=== PATIENT | female | born 1980 | race African-American/Black ===

== ENCOUNTER 2016-07-29 13:38 | Emergency (ER) | payer OTHER ==
[2016-07-29 13:44] VITALS: BP 120/68; PULSE 85; TEMP 98.1; BMI 32.4
--- NOTE | 2016-07-29 15:07 | PDOC ---
History of Present Illness - General Chief Complaint: Back Pain Stated Complaint: LOWER BACK PAIN Time Seen by Provider: 07/29/16 14:36 History Source: Patient Exam Limitations: No Limitations - History of Present Illness Initial Comments: 07/29/16 16:44 MY CHIEF COMPLAINT: LOWER BACK SINCE YESTERDAY GETTING WORSE HISTORY OF PRESENT ILLNESS: PT. IS A 36 Y/O FEMALE WITH H/O ANEMIA HERE TODAY C/ O LOWER BACK PAIN WITHOUT RADIATION DOWN LEGS SINCE YESTERDAY. PT. DENIES ANY HEAVY LIFTING OR INJURY. PT. DENIES ANY SADDLE ANESTHESIA OR INCONTINENCY. PT. HAS DIFFICULTY STANDING UP STRAIGHT DUE MUSCLE SPASM IN LOWER BACK. PT. REPORTS PAIN WORSENS THROUGHOUT THE DAY AND IS WORSE WITH MOVEMENT. PT. REPORTS PAIN CURRENTLY IS A 8 OUT OF 10. Reports having back pain intermittently for the last 2 years probable a 4-5 times her year however this episode is worse than the past episodes. Occurred: reports: yesterday Severity: reports: moderate Pain Location: reports: back (lower mid to left back pain ) Method of Injury: Yes: unknown Modifying Factors: improves with: None Loss of Consciousness: no loss of consciousness Associated Symptoms (Fall): muscle spasms (lower back when getting up from seated position ) Past History - Past Medical History Allergies/Adverse Reactions: Allergies Allergy/AdvReac Type Severity Reaction Status Date / Time No Known Allergies Allergy Verified 07/29/16 13:44 Home Medications: Ambulatory Orders Cyclobenzaprine HCl [Flexeril 10 mg] 10 mg PO Q8H PRN #21 tablet MDD 3 07/29/16 Naproxen [Naprosyn -] 500 mg PO BID PRN #14 tablet 07/29/16 Anemia: Yes Psychiatric Problems: Yes (anxiety) - Surgical History Cholecystectomy: Yes - Immunization History Immunization Up to Date: Yes - Psycho/Social/Smoking Cessation Hx Anxiety: Yes Suicidal Ideation: No Smoking Status: No Smoking History: Never smoked Number of Cigarettes Smoked Daily: 0 Information on smoking cessation initiated: No Hx Alcohol Use: No Drug/Substance Use Hx: No Substance Use Type: None Review of Systems - Review of Systems Able to Perform ROS?: Yes Constitutional: No: Symptoms Reported HEENTM: No: Symptoms Reported Respiratory: No: Symptoms reported Cardiac (ROS): No: Symptoms Reported ABD/GI: No: Symptoms Reported : No: Symptoms Reported Musculoskeletal: Yes: Back Pain (mid to left lower back pain with muscle spasm ) Integumentary: No: Symptoms Reported Neurological: No: Symptoms reported *Physical Exam - Vital Signs Last Vital Signs Temp Pulse Resp BP Pulse Ox 98.1 F 85 18 120/68 98 07/29/16 13:42 07/29/16 13:42 07/29/16 13:42 07/29/16 13:42 07/29/16 13:42 - Physical Exam General Appearance: Yes: Appropriately Dressed Respiratory/Chest: positive: Lungs Clear, Normal Breath Sounds. negative: Chest Tender, Respiratory Distress Cardiovascular: positive: Regular Rhythm, Regular Rate, S1, S2 Musculoskeletal: positive: Normal Inspection, Decreased Range of Motion (from waist ), Muscle Spasm (left paraspinal muscle lumbar), Vertebral Tenderness ( mid lumbar). negative: CVA Tenderness, CVA Tenderness (R), CVA Tenderness (L) Extremity: positive: Normal Capillary Refill, Normal Inspection, Normal Range of Motion Integumentary: positive: Normal Color Neurologic: positive: Alert, Normal Response, Motor Strength 5/5 (b/l legs ), Respond to painful stimul (b/l legs), Responsive, Other (negative SLR b/l ). negative: Numbness, Sensory Deficit Deep Tendon Reflexes: Knee (L): 4+, Knee (R): 4+ Medical Decision Making - Medical Decision Making 07/29/16 15:33 07/29/16 16:44 07/29/16 16:52 PT. IS A 36 Y/O FEMALE WITH H/O ANEMIA HERE TODAY C/O LOWER BACK PAIN WITHOUT RADIATION DOWN LEGS SINCE YESTERDAY. PT. DENIES ANY HEAVY LIFTING OR INJURY. PT. DENIES ANY SADDLE ANESTHESIA OR INCONTINENCY. PT. HAS DIFFICULTY STANDING UP STRAIGHT DUE MUSCLE SPASM IN LOWER BACK. PT. REPORTS PAIN WORSENS THROUGHOUT THE DAY AND IS WORSE WITH MOVEMENT. PT. REPORTS PAIN CURRENTLY IS A 8 OUT OF 10. Reports having back pain intermittently for the last 2 years probable a 4-5 times her year however this episode is worse than the past episodes. She denies any chance of had tubal ligation. Patient reports that she took ibuprofen earlier this morning pain was slightly better for short period of time. She is currently driving. lower back pain with muscle spasm Plan: X-ray lumbar sacral spine mild degenerative disc disease L4-L5 with minimal lateral cc of L4 over L5 likely degenerative per Dr. Negron toradol 60 mg IM now follow up with orthopedist naprosyn 50 mg bid prn pain # 14 tabs flexeril 10 mg q 8 hrs prn muscle spasm # 21 tabs 07/29/16 16:56 *DC/Admit/Observation/Transfer Diagnosis at time of Disposition: Back muscle spasm Lower back pain Qualifiers: Chronicity: acute Back pain laterality: left Sciatica presence: without sciatica Qualified Code(s): M54.5 - Low back pain - Discharge Dispostion Disposition: HOME Condition at time of disposition: Stable - Referrals Referrals: Nuzhat Romero MD [Primary Care Provider] - Luis Camargo MD [Staff Physician] - - Patient Instructions Additional Instructions: Follow-up with orthopedist as soon as possible Avoid any strenuous activities or exercise or any lifting of anything heavy Return to emergency room if symptoms worsen any numbness of legs or groin or worsening pain Patient voiced understanding of discharge instructions and all questions were answered - Post Discharge Activity Work/School Note: Back to Work
[2016-07-29] MEDS ORDERED: KETOROLAC TROMETHAMINE 60 MG/2 ML VIAL IM ONE (15:29)
[2016-07-29] MEDS ORDERED: KETOROLAC TROMETHAMINE 60 MG/2 ML VIAL ONE (15:39)
== END 2016-07-29 17:00 | disposition home or self-care (01) ==
LOC: JERFT 13:38
PROC: 3E0233Z Introduction of Anti-inflammatory into Muscle, Percutaneous Approach (ICD-10-PCS; principal; 2016-07-29)
DX: M54.5 Low back pain (principal); F41.9 Anxiety disorder, unspecified; D64.9 Anemia, unspecified
CPT/HCPCS: 72100-TC; 99281-25

== ENCOUNTER 2016-08-07 14:58 | Emergency (ER) | payer OTHER ==
[2016-08-07 15:06] VITALS: BP 140/88; PULSE 104; TEMP 98.1; BMI 32.4
--- NOTE | 2016-08-07 15:15 | PDOC ---
History of Present Illness - General Chief Complaint: Back Pain Stated Complaint: BACK PAIN Time Seen by Provider: 08/07/16 15:15 History Source: Patient Exam Limitations: No Limitations - History of Present Illness Initial Comments: 08/07/16 15:43 Patient return to this emergency department for persistent back pain and spasm. was seen here 10 days ago, and prescribed naproxen and cyclobenzaprine. Patient has taken only a few tablets of the psychotropic benzopyrene and taking Naprosyn twice a day rather than every 8 hours. States spasm has persisted is intermittent however today woke up and was significant and made difficult to stand straight. Denies numbness or tingling in feet however has some radiating pain down her posterior right leg and buttock. No problems with bowel or bladder. Severity: reports: moderate Pain Location: reports: back Modifying Factors: improves with: None Associated Symptoms (Fall): denies symptoms Past History - Travel Traveled outside of the country in the last 30 days: No Close contact w/someone who was outside of country & ill: No - Past Medical History Allergies/Adverse Reactions: Allergies Allergy/AdvReac Type Severity Reaction Status Date / Time No Known Allergies Allergy Verified 08/07/16 15:06 Home Medications: Ambulatory Orders Cyclobenzaprine HCl [Flexeril 10 mg] 10 mg PO Q8H PRN #21 tablet MDD 3 07/29/16 Naproxen [Naprosyn -] 500 mg PO BID PRN #14 tablet 07/29/16 Methocarbamol [Robaxin -] 1,500 mg PO Q8H PRN #30 tablet 08/07/16 Prednisone [Deltasone -] 20 mg PO BID #10 tablet 08/07/16 Anemia: Yes Psychiatric Problems: Yes (anxiety) - Surgical History Cholecystectomy: Yes - Immunization History Immunization Up to Date: Yes - Psycho/Social/Smoking Cessation Hx Anxiety: Yes Suicidal Ideation: No Smoking Status: No Smoking History: Never smoked Number of Cigarettes Smoked Daily: 0 Hx Alcohol Use: No Drug/Substance Use Hx: No Substance Use Type: None Trauma Specific PMHX - Complaint Specific PMHX Back Injury: No Neck Injury: No Review of Systems - Review of Systems Able to Perform ROS?: Yes Is the patient limited [place] proficient: Yes Constitutional: Yes: Symptoms Reported, See HPI. No: Loss of Appetite, Malaise HEENTM: Yes: See HPI. No: Symptoms Reported Respiratory: Yes: Symptoms reported Musculoskeletal: Yes: Symptoms Reported All Other Systems: Reviewed and Negative *Physical Exam - Vital Signs Last Vital Signs Temp Pulse Resp BP Pulse Ox 98.1 F 104 H 20 140/88 98 08/07/16 15:02 08/07/16 15:02 08/07/16 15:02 08/07/16 15:02 08/07/16 15:02 - Physical Exam General Appearance: Yes: Appropriately Dressed, Apparent Distress HEENT: positive: DAXA, Normal ENT Inspection, TMs Normal, Pharynx Normal Neck: positive: Supple. negative: Tender Gastrointestinal/Abdominal: positive: Normal Bowel Sounds, Tender, Soft Musculoskeletal: positive: Normal Inspection, Decreased Range of Motion, Muscle Spasm (possible spasm and mild swelling noted across the mid aspect at waistline of back, has no true bone tenderness, crepitus or step-offs. But has palpable spasm bilateral paravertebral spinous muscles worse on the right than the left with very tense musculature inferior to that. Range of motion is limited secondary to this pain. Is ambulatory but walks mildly crooked). negative: CVA Tenderness (L), Vertebral Tenderness Extremity: positive: Normal Capillary Refill. negative: Normal Range of Motion Integumentary: positive: Normal Color Neurologic: positive: canal driver II-XII NML intact, Fully Oriented, Alert, Normal Mood/ Affect Progress Note - Progress Note Progress Note: Persistent back spasm, not taking medications regularly. Reviewed appropriate treatment course, will add prednisone as a steroidal anti-inflammatory and patient will continue with her referral for physical therapy and proceed with MRI as ordered by Dr. Saldivar/orthopedist *DC/Admit/Observation/Transfer Diagnosis at time of Disposition: Back muscle spasm - Discharge Dispostion Disposition: HOME Condition at time of disposition: Stable Admit: No - Referrals Referrals: Nuzhat Romero MD [Primary Care Provider] - Jesus Bardales MD [Staff Physician] - - Patient Instructions Printed Discharge Instructions: DI for Back Spasm Additional Instructions: Rest, no heavy lifting or exercise until pain is resolved Hot soaks to neck and low back as often as possible/hot showers or Jacuzzis No massage or therapy until spasm is gone Continue Naprosyn, 500 mg tablets every 8 hours for the next 3 days then as needed for pain and swelling Prednisone 40 mg daily for 5 days total Cyclobenzaprine 1-10mg every 8 hours as needed for spasm, if no significant improvement after 24 hours change anti-spasmodic to Robaxin: 1500 mg every 8 hours for 2 days then reduce to 750 mg every 8 hours as needed for continued spasm. If not significant improvement within 24 hours with medication and rest regime, followup with private physician for change in medications and /or therapy. - Post Discharge Activity Work/School Note: Back to Work
== END 2016-08-07 16:21 | disposition home or self-care (01) ==
LOC: JER 14:58 → JERFT 14:58
DX: M62.830 Muscle spasm of back (principal); F41.9 Anxiety disorder, unspecified; D64.9 Anemia, unspecified
CPT/HCPCS: 99281-25